=== PATIENT | female | born 1960 | race Two or more races ===

== ENCOUNTER 2019-12-08 18:48 | Observation (INO) | payer OTHER ==
[2019-12-08] MEDS ORDERED: SODIUM CHLORIDE 0.9% 500 ML 500 ML IV STA (20:11)
[2019-12-08] MEDS ORDERED: ASPIRIN 81 MG PO STA (20:11)
[2019-12-08] MEDS ORDERED: diphenhydrAMINE 50 MG/ML 1 ML VIAL IVP STA (20:12)
[2019-12-08] MEDS ORDERED: FAMOTIDINE 20 MG/2 ML VIAL IV STA (20:12)
[2019-12-08] MEDS ORDERED: methylPREDNISolone SOD SUCCI 125 MG/2 ML VIAL IV STA (20:12)
[2019-12-08 20:36] LABS: Basophils # (A) 0.1 k/uL (0-0.2); Basophils % (A) 1 %; Eosinophils # (A) 0.2 k/uL (0-0.7); Eosinophils % (A) 4 %; HCT 42.3 % (34.0-46.0); HGB 13.8 gm/dL (11.4-16.0); Lymphocytes # (A) 1.6 k/uL (1.0-4.8); Lymphocytes % (A) 24 %; MCH 29.5 pg (25.0-35.0); MCHC 32.7 g/dL (31.0-37.0); MCV 90.2 fL (80.0-100.0); Mean Platelet Volume 8.6; Monocytes # (A) 0.4 k/uL (0-1.0); Monocytes % (A) 5 %; Neutrophils # (A) 4.1 k/uL (1.3-7.7); Neutrophils % (A) 64 %; Platelet Count 221 k/uL (150-450); RBC 4.69 m/uL (3.80-5.40); RDW 12.5 % (11.5-15.5); WBC 6.5 k/uL (3.8-10.6)
[2019-12-08 20:51] LABS: ALT 49 U/L (4-34); AST 38 U/L (14-36); African American GFR (CKD) >90 (>60 ml/min/1.73 sqM); Albumin 4.2 g/dL (3.5-5.0); Alkaline Phosphatase 127 U/L (38-126); Anion Gap 5 mmol/L; Blood Urea Nitrogen 14 mg/dL (7-17); Calcium 10.1 mg/dL (8.4-10.2); Carbon Dioxide 27 mmol/L (22-30); Chloride 107 mmol/L (98-107); Glucose 94 mg/dL (74-99); Non-African American GFR(CKD) 80 (>60 ml/min/1.73 sqM); Sodium 139 mmol/L (137-145); Total Bilirubin 0.4 mg/dL (0.2-1.3); Total Protein 7.3 g/dL (6.3-8.2)
--- NOTE | 2019-12-08 20:56 | XR ---
EXAMINATION TYPE: XR chest 2V DATE OF EXAM: 12/08/2019 COMPARISON: NONE HISTORY: Chest pain TECHNIQUE: 2 views FINDINGS: Heart and mediastinum are normal. Lungs are clear. Diaphragm is normal. Bony thorax appears normal. IMPRESSION: Normal chest. Normal heart.
[2019-12-08] MEDS ORDERED: NITROGLYCERIN SL TABS 0.4 MG TAB SUBLINGUAL PRN (23:44)
--- NOTE | 2019-12-09 00:15 | ED ---
General Adult HPI - General Chief complaint: Skin/Abscess/Foreign Body Stated complaint: rash Time Seen by Provider: 12/08/19 19:28 Source: patient, RN notes reviewed, old records reviewed Mode of arrival: ambulatory Limitations: no limitations - History of Present Illness Initial comments: 59-year-old female patient presents to ED for evaluation of rash as well as chest pain. Patient was just recently moved here from [place] yesterday. Reports that she will go to a maculopapular rash in anterior chest wall, upper and lower extremities. Reports is pruritic in nature. Patient reports that this morning she began experiencing substernal chest pain and pressure. Also reports some associated shortness of breath with it. Denies any prior cardiac history. Reports that she is a former smoker. Denies any prior cardiac investigations. Systemic: Pt denies fatigue, fever/chills. Pt denies weakness, night sweats, weight loss. Neuro: Pt denies headache, visual disturbances, syncope or pre-syncope. HEENT: Pt denies ocular discharge or irritation, otalgia, rhinorrhea, pharyngitis or notable lymphadenopathy. Cardiopulmonary: Pt denies heart palpitations, dyspnea on exertion. Abdominal/GI: Pt denies abdominal pain, n/v/d. : Pt denies dysuria, burning w/ urination, frequency/urgency. Denies new onset urinary or bowel incontinence. MSK: Pt denies myalgia, loss of strength or function in extremities. Neuro: Pt denies new onset weakness, paresthesias. - Related Data Home Medications Medication Instructions Recorded Confirmed Aspirin EC [Ecotrin Low Dose] 81 mg PO DAILY 12/08/19 12/08/19 diphenhydrAMINE [Benadryl] 25 mg PO ONCE 12/08/19 12/08/19 Allergies Allergy/AdvReac Type Severity Reaction Status Date / Time No Known Allergies Allergy Verified 12/08/19 23:54 Review of Systems ROS Statement: Those systems with pertinent positive or pertinent negative responses have been documented in the HPI. ROS Other: All systems not noted in ROS Statement are negative. Past Medical History Additional Past Medical History / Comment(s): PARVO, degenerative disc disease, scoliosis, History of Any Multi-Drug Resistant Organisms: None Reported Past Surgical History: Appendectomy, Tonsillectomy Additional Past Surgical History / Comment(s): eye surgery, Past Psychological History: No Psychological Hx Reported Smoking Status: Former smoker Past Alcohol Use History: Rare Past Drug Use History: None Reported General Exam - General Exam Comments Initial Comments: Constitutional: NAD, AOX3, Pt has pleasant affect. HEENT: NC/AT, trachea midline, neck supple, no lymphadenopathy. Posterior pharynx non erythematous, without exudates. External ears appear normal, without discharge. Mucous membranes moist. Eyes PERRLA, EOM intact. There is no scleral icterus. No pallor noted. Cardiopulmonary: RRR, no murmurs, rubs or gallops, no JVD noted. Lungs CTAB in anterior and posterior carmona. No peripheral edema. Abdominal exam: Abdomen soft and non-distended. Abdomen non-tender to palpation in all 4 quadrants. Bowel sounds active in LLQ. No hepatosplenomegaly. No ecchymosis Neuro: CN II-XII grossly intact. No nuchal rigidity. No raccon eyes, no mccauley sign, no hemotympanum. No cervical spinal tenderness. MSK: No posterior calf tenderness bilaterally, homans sign negative bilaterally. Posterior tibialis and radial pulse +2 bilaterally. Sensation intact in upper and lower extremities. Full active ROM in upper and lower extremities, 5/5 stregnth. Derm: Maculopapular rash noted in anterior chest wall, upper and lower extremities. No angioedema or regional rehabilitation director pharygeal edema. Limitations: no limitations Course Vital Signs 12/08/19 12/08/19 12/08/19 19:01 22:13 23:49 Temperature 98.9 F 98.0 F Pulse Rate 83 69 68 Respiratory 18 18 18 Rate Blood Pressure 162/85 170/95 154/91 O2 Sat by Pulse 98 96 98 Oximetry Medical Decision Making - Medical Decision Making 59-year-old female patient presents to ED for evaluation of rash as well as chest pain. Patient was just recently moved here from [place] yesterday. Reports that she will go to a maculopapular rash in anterior chest wall, upper and lower extremities. Reports is pruritic in nature. Patient reports that this morning she began experiencing substernal chest pain and pressure. Also reports some associated shortness of breath with it. Denies any prior cardiac history. Reports that she is a former smoker. Denies any prior cardiac investigations. Patient vital signs are stable, afebrile. His exam displayed maculopapular rash in upper and lower extremities anterior torso. Patient admits or steroid Benadryl Pepcid. Rash did improve significantly. Patient reports that her chest pain has also resolved. Laboratory investigations were obtained d-dimer is 0.39. Troponin is negative. EKG nonspecific. Chest x-ray revealed no acute process. Patient be admitted for surgical troponins rule out ACS. Case discussed with Dr. Recio. - Lab Data Result diagrams: 12/08/19 20:20 12/08/19 20:20 Lab Results 12/08/19 12/08/19 12/08/19 Range/Units 20:20 20:20 20:20 WBC 6.5 (3.8-10.6) k/uL RBC 4.69 (3.80-5.40) m/uL Hgb 13.8 (11.4-16.0) gm/dL Hct 42.3 (34.0-46.0) % MCV 90.2 (80.0-100.0) fL MCH 29.5 (25.0-35.0) pg MCHC 32.7 (31.0-37.0) g/dL RDW 12.5 (11.5-15.5) % Plt Count 221 (150-450) k/uL Neutrophils % 64 % Lymphocytes % 24 % Monocytes % 5 % Eosinophils % 4 % Basophils % 1 % Neutrophils # 4.1 (1.3-7.7) k/uL Lymphocytes # 1.6 (1.0-4.8) k/uL Monocytes # 0.4 (0-1.0) k/uL Eosinophils # 0.2 (0-0.7) k/uL Basophils # 0.1 (0-0.2) k/uL D-Dimer (<0.60) mg/L FEU Sodium 139 (137-145) mmol/L Potassium 4.0 (3.5-5.1) mmol/L Chloride 107 (98-107) mmol/L Carbon Dioxide 27 (22-30) mmol/L Anion Gap 5 mmol/L BUN 14 (7-17) mg/dL Creatinine 0.82 (0.52-1.04) mg/dL Est GFR (CKD-EPI)AfAm >90 (>60 ml/min/1.73 sqM) Est GFR (CKD-EPI)NonAf 80 (>60 ml/min/1.73 sqM) Glucose 94 (74-99) mg/dL Calcium 10.1 (8.4-10.2) mg/dL Magnesium 2.0 (1.6-2.3) mg/dL Total Bilirubin 0.4 (0.2-1.3) mg/dL AST 38 H (14-36) U/L ALT 49 H (4-34) U/L Alkaline Phosphatase 127 H (38-126) U/L Troponin I <0.012 (0.000-0.034) ng/mL Total Protein 7.3 (6.3-8.2) g/dL Albumin 4.2 (3.5-5.0) g/dL 12/08/19 Range/Units 20:20 WBC (3.8-10.6) k/uL RBC (3.80-5.40) m/uL Hgb (11.4-16.0) gm/dL Hct (34.0-46.0) % MCV (80.0-100.0) fL MCH (25.0-35.0) pg MCHC (31.0-37.0) g/dL RDW (11.5-15.5) % Plt Count (150-450) k/uL Neutrophils % % Lymphocytes % % Monocytes % % Eosinophils % % Basophils % % Neutrophils # (1.3-7.7) k/uL Lymphocytes # (1.0-4.8) k/uL Monocytes # (0-1.0) k/uL Eosinophils # (0-0.7) k/uL Basophils # (0-0.2) k/uL D-Dimer 0.39 (<0.60) mg/L FEU Sodium (137-145) mmol/L Potassium (3.5-5.1) mmol/L Chloride (98-107) mmol/L Carbon Dioxide (22-30) mmol/L Anion Gap mmol/L BUN (7-17) mg/dL Creatinine (0.52-1.04) mg/dL Est GFR (CKD-EPI)AfAm (>60 ml/min/1.73 sqM) Est GFR (CKD-EPI)NonAf (>60 ml/min/1.73 sqM) Glucose (74-99) mg/dL Calcium (8.4-10.2) mg/dL Magnesium (1.6-2.3) mg/dL Total Bilirubin (0.2-1.3) mg/dL AST (14-36) U/L ALT (4-34) U/L Alkaline Phosphatase (38-126) U/L Troponin I (0.000-0.034) ng/mL Total Protein (6.3-8.2) g/dL Albumin (3.5-5.0) g/dL - EKG Data -: EKG Interpreted by Me (and Dr. Recio ) EKG Comments: Ventricular rate 65, AK interval 214, QRS 80, QT/QTC venous access 411. Sensory rhythm first-degree AV block. Low voltage QRS. Rule out anterior infarct age indeterminate. Abnormal EKG. No ST elevations or depressions. Disposition Clinical Impression: Chest pain, Rash Disposition: ADMITTED IP TO THIS [facility] Condition: Serious Is patient prescribed a controlled substance at d/c from ED?: No Referrals: None,Stated [Primary Care Provider] - 1-2 days
[2019-12-09 02:24] VITALS: RESP 16
[2019-12-09 03:17] LABS: Cholesterol 208 mg/dL (<200); HDL Cholesterol 35 mg/dL (40-60); LDL Cholesterol,Calculated 100 mg/dL (0-99); Triglycerides 367 mg/dL (<150)
[2019-12-09] MEDS ORDERED: diphenhydrAMINE 25 MG CAP PO STA (08:01)
[2019-12-09] MEDS ORDERED: ASPIRIN 325 MG TAB PO SCH (09:00)
--- NOTE | 2019-12-09 09:39 | P.CRDCN ---
History of Present Illness History of present illness: HISTORY OF PRESENTING ILLNESS This is a pleasant 59-year-old female past medical history significant for fatty liver disease and chronic back pain. She denies prior history of coronary artery disease and does not follow in the office with a combat information center officer for any reason. We have been asked to see in consultation for chest pain. She presents to the emergency department yesterday with symptoms of a rash all over her body that has been going on for the previous 2 days. She recently moved to [place] from [place] and is living with her uncle. She states her uncle does not have a rash. Rash is quite pruritic in nature and appears maculopapular. Associated with the rash starting around the same time she describes a tight squeezing sensation in the midsternal region associated with shortness of breath, nausea, dizziness, palpitations, cough and headache. Her symptoms are not exacerbated by exertion or activity. They have been constant for the past 2 days. According to the patient she has never undergone any sort of stress testing in the past. DIAGNOSTICS EKG reveals sinus mechanism, first-degree AV block and poor R-wave progression. Chest xray negative for an acute cardiopulmonary process. Laboratory reviewed, CBC unremarkable, d-dimer 0.39, sodium 139, potassium 4.0, creatinine 0.82, magnesium 2.0, AST 38, ALT 49, alkaline phosphate 127, cardiac enzymes negative 2, LDL 100, HDL 35, triglycerides 367 and a total cholesterol 208. Current cardiac medications include aspirin 81 mg daily. REVIEW OF SYSTEMS At the time of my exam: CONSTITUTIONAL: Denies fever or chills. CARDIOVASCULAR: Complains of chest tightness, shortness of breath and palpitations. Denies orthopnea or PND. RESPIRATORY: Complains of cough. GASTROINTESTINAL: Complains of nausea. Denies abdominal pain, diarrhea, constipation or vomiting. MUSCULOSKELETAL: Denies myalgias. NEUROLOGIC: Complains of headache. Denies numbness, tingling or weakness. ENDOCRINE: Denies fatigue, weight change, polydipsia or polyurina. GENITOURINARY: Denies burning, hematuria or urgency with micturation. HEMATOLOGIC: Denies history of anemia or bleeding. PHYSICAL EXAMINATION Blood pressure 133/74 heart rate 70 afebrile and maintaining oxygen saturation on room air. CONSTITUTIONAL: No apparent distress. HEENT: Head is normocephalic. Pupils are equal, round. Sclerae anicteric. Mucous membranes of the mouth are moist. No JVD. No carotid bruit. CHEST EXAMINATION: Lungs are clear to auscultation. No chest wall tenderness is noted on palpation or with deep breathing. HEART EXAMINATION: Regular rate and rhythm. S1, S2 heard. No murmurs, gallops or rub. ABDOMEN: Soft, nontender. Positive bowel sounds. EXTREMITIES: 2+ peripheral pulses, no lower extremity edema and no calf tenderness. NEUROLOGIC EXAMINATION: Patient is awake, alert and oriented x3. ASSESSMENT Chest pain, atypical. An acute coronary event has been ruled out. Acute maculopapular rash throughout her entire body Dyslipidemia PLAN An acute coronary event has been ruled out. Obtain 2-D echocardiogram and Doppler study to assess cardiac structure and function. Give one dose of PO benadryl 25 mg for ongoing rash and pruritus. Symptoms are atypical, no acute EKG changes and negative cardiac enzymes. Recommend evaluation and treatment of rash and will pursue outpatient stress testing in the office. Lifestyle modifications recommended for lowering of LDL cholesterol and triglycerides. Thank you kindly for this consultation. Nurse Practitioner note has been reviewed, I agree with a documented findings and plan of care. Patient was seen and examined. Past Medical History Past Medical History: Liver Disease Additional Past Medical History / Comment(s): PARVO, degenerative disc disease, scoliosis, fatty liver History of Any Multi-Drug Resistant Organisms: None Reported Past Surgical History: Appendectomy, Tonsillectomy Additional Past Surgical History / Comment(s): eye surgery, Past Psychological History: No Psychological Hx Reported Smoking Status: Former smoker Past Alcohol Use History: Rare Past Drug Use History: None Reported Medications and Allergies Home Medications Medication Instructions Recorded Confirmed Type Aspirin EC [Ecotrin Low Dose] 81 mg PO DAILY 12/08/19 12/08/19 History diphenhydrAMINE [Benadryl] 25 mg PO ONCE 12/08/19 12/08/19 History Allergies Allergy/AdvReac Type Severity Reaction Status Date / Time No Known Allergies Allergy Verified 12/08/19 23:54 Physical Exam Vitals: Vital Signs Temp Pulse Pulse Resp BP BP Pulse Ox 12/09/19 07:30 98.2 F 70 16 133/74 95 12/09/19 01:46 98 F 95 16 151/79 95 12/08/19 23:49 98.0 F 68 18 154/91 98 12/08/19 22:13 69 18 170/95 96 12/08/19 19:01 98.9 F 83 18 162/85 98 Intake and Output 12/08/19 12/09/19 12/09/19 22:59 06:59 14:59 Other: # Voids 1 Weight 85.729 kg 85.729 kg Results 12/08/19 20:20 12/08/19 20:20 Cardiac Enzymes 12/08/19 12/08/19 12/09/19 Range/Units 20:20 20:20 01:57 AST 38 H (14-36) U/L Troponin I <0.012 <0.012 (0.000-0.034) ng/mL Lipids 12/09/19 Range/Units 02:00 Triglycerides 367 H (<150) mg/dL Cholesterol 208 H (<200) mg/dL HDL Cholesterol 35 L (40-60) mg/dL CBC 12/08/19 Range/Units 20:20 WBC 6.5 (3.8-10.6) k/uL RBC 4.69 (3.80-5.40) m/uL Hgb 13.8 (11.4-16.0) gm/dL Hct 42.3 (34.0-46.0) % Plt Count 221 (150-450) k/uL Comprehensive Metabolic Panel 12/08/19 Range/Units 20:20 Sodium 139 (137-145) mmol/L Potassium 4.0 (3.5-5.1) mmol/L Chloride 107 (98-107) mmol/L Carbon Dioxide 27 (22-30) mmol/L BUN 14 (7-17) mg/dL Creatinine 0.82 (0.52-1.04) mg/dL Glucose 94 (74-99) mg/dL Calcium 10.1 (8.4-10.2) mg/dL AST 38 H (14-36) U/L ALT 49 H (4-34) U/L Alkaline Phosphatase 127 H (38-126) U/L Total Protein 7.3 (6.3-8.2) g/dL Albumin 4.2 (3.5-5.0) g/dL Current Medications Generic Name Dose Route Start Last Admin Trade Name Freq PRN Reason Stop Dose Admin Aspirin 325 mg 12/09/19 09:00 12/09/19 07:35 Aspirin PO 325 mg DAILY ODALYS Administration Nitroglycerin 0.4 mg 12/08/19 23:44 Nitrostat SUBLINGUAL Q5M PRN Chest Pain Intake and Output 12/08/19 12/09/19 12/09/19 22:59 06:59 14:59 Other: # Voids 1 Weight 85.729 kg 85.729 kg 12/08/19 20:20 12/08/19 20:20
--- NOTE | 2019-12-09 11:59 | ECHOF ---
Referral Reason:shorntess of breath MEASUREMENTS -------- HEIGHT: 154.9 cm WEIGHT: 85.7 kg BP: RVIDd: 3.0 cm (< 3.3) IVSd: 1.3 cm (0.6 - 1.1) LVIDd: 2.9 cm (3.9 - 5.3) LVPWd: 1.2 cm (0.6 - 1.1) IVSs: 1.7 cm LVIDs: 1.2 cm LVPWs: 1.8 cm LAESV Index (A-L): 28.76 ml/m Ao Diam: 2.7 cm (2.0 - 3.7) AV Cusp: 1.6 cm (1.5 - 2.6) LA Diam: 2.7 cm (2.7 - 3.8) MV EXCURSION: 13.666 mm (> 18.000) MV EF SLOPE: 26 mm/s (70 - 150) EPSS: 0.4 cm MV E Tato: 0.83 m/s MV DecT: 212 ms MV A Tato: 1.08 m/s MV E/A Ratio: 0.77 RAP: 5.00 mmHg RVSP: 36.78 mmHg FINDINGS -------- Sinus rhythm. This was a technically good study. The left ventricular size is normal. There is mild concentric left ventricular hypertrophy. Overa ll left ventricular systolic function is normal with, an EF between 60 - 65 %. The right ventricle is normal in size. The left atrial size is normal. Normal LA size by volume 22+/-6 ml/m2. The right atrial size is normal. Interatrial and interventricular septum intact. The aortic valve is trileaflet and appears structurally normal. The mitral valve is normal. Mild mitral regurgitation is present. The tricuspid valve appears structurally normal. Mild tricuspid regurgitation present. Right vent ricular systolic pressure is normal at < 35 mmHg. There is no pulmonic regurgitation present. The aortic root size is normal. Normal inferior vena cava with normal inspiratory collapse consistent with estimated right atrial pre ssure of 5 mmHg. There is no pericardial effusion. CONCLUSIONS -------- 1. Sinus rhythm. 2. This was a technically good study. 3. The left ventricular size is normal. 4. There is mild concentric left ventricular hypertrophy. 5. Overall left ventricular systolic function is normal with, an EF between 60 - 65 %. 6. The right ventricle is normal in size. 7. The left atrial size is normal. 8. Normal LA size by volume 22+/-6 ml/m2. 9. The right atrial size is normal. 10. Interatrial and interventricular septum intact. 11. The aortic valve is trileaflet and appears structurally normal. 12. The mitral valve is normal. 13. Mild mitral regurgitation is present. 14. The tricuspid valve appears structurally normal. 15. Mild tricuspid regurgitation present. 16. Right ventricular systolic pressure is normal at < 35 mmHg. 17. There is no pulmonic regurgitation present. 18. The aortic root size is normal. 19. Normal inferior vena cava with normal inspiratory collapse consistent with estimated right atrial pressure of 5 mmHg. 20. There is no pericardial effusion. FACILITIES MECHANICAL DESIGN ENGINEER: Traci Wren RDCS
[2019-12-09 12:08] VITALS: BP 141/82; PULSE 99; TEMP 98
--- NOTE | 2019-12-09 13:02 | P.HPIM ---
History of Present Illness H&P Date: 12/09/19 Chief Complaint: Chest pain, rash This note will serve as the H&P and discharge summary. This is a 59-year-old female with PMH of chronic neck pain presents to the ED for chest tightness. Patient reports that she traveled from [place] 1 week ago and has been living with her uncle since. Patient reports a rash that initially started on her bilateral upper extremities but has spread throughout her body mostly involving her arms, lower extremities below the knees and her waist. She denies any rash in her palms or soles. She denies any pets at home. She does report spending time outdoors while in [place]. Patient reports itchiness with her rash. She does report a history of Parvo B19 infection in the past. Patient states she experienced chest tightness yesterday while she was sitting down. When her chest tightness did not improve this prompted her to come to the ED. She denies any pleuritic chest pain. She denies any shortness of breath or palpitations. She denies any headache, lower extremity edema, nausea or vomiting, fever chills, cough, changes in urination or bowel habits. No changes in appetite or weight. She denies any dizziness, numbness/weakness/tingling of the extremities. In the ED, her vital signs were stable except for mildly elevated BP of 162/85. CBC was unremarkable. D-dimer was negative. CMP showed AST of 38, ALT of 49 and alkaline phosphatase of 127. Troponin was less than 0.0123, EKG showing sinus rhythm with first-degree AV block. Acute coronary syndrome was ruled out. BNP was 119. Lipid panel showed triglyceride of 367, total cholesterol 208, LDL of 100 and HDL 35. Patient was admitted for chest pain, rule out acute coronary syndrome and cardiology consultation. Cardiology evaluated the patient and recommended echocardiogram. Echocardiogram showed EF 60-65% with mild concentric LVH. Cardiology cleared the patient for discharge. Patient was seen and examined. No acute events overnight. Patient reports improvement in her chest tightness since admission. She denies any actual chest pain, shortness of breath or palpitations. She continues to complain of the pruritic nature of her rash. Review of Systems Pertinent positives and negatives as discussed in HPI, a complete review of systems was performed and all other systems are negative. Past Medical History Past Medical History: Liver Disease Additional Past Medical History / Comment(s): PARVO, degenerative disc disease, scoliosis, fatty liver History of Any Multi-Drug Resistant Organisms: None Reported Past Surgical History: Appendectomy, Tonsillectomy Additional Past Surgical History / Comment(s): eye surgery, Past Psychological History: No Psychological Hx Reported Smoking Status: Former smoker Past Alcohol Use History: Rare Past Drug Use History: None Reported Medications and Allergies Home Medications Medication Instructions Recorded Confirmed Type Aspirin EC [Ecotrin Low Dose] 81 mg PO DAILY 12/08/19 12/08/19 History diphenhydrAMINE [Benadryl] 25 mg PO ONCE 12/08/19 12/08/19 History Allergies Allergy/AdvReac Type Severity Reaction Status Date / Time No Known Allergies Allergy Verified 12/08/19 23:54 Physical Exam Vitals: Vital Signs Temp Pulse Pulse Resp BP BP Pulse Ox 12/09/19 12:00 98.0 F 99 16 141/82 100 12/09/19 07:30 98.2 F 70 16 133/74 95 12/09/19 01:46 98 F 95 16 151/79 95 12/08/19 23:49 98.0 F 68 18 154/91 98 12/08/19 22:13 69 18 170/95 96 12/08/19 19:01 98.9 F 83 18 162/85 98 Intake and Output 12/08/19 12/09/19 12/09/19 22:59 06:59 14:59 Intake Total 1180 Balance 1180 Intake: Oral 1180 Other: Voiding Method Toilet # Voids 1 2 Weight 85.729 kg 85.729 kg General: [non toxic], [no distress], [appears at stated age] Derm: [warm], [dry], [maculopapular rash scattered throughout her body, focused on the bilateral lower extremities below the knee and bilateral upper extremities and above the waist] Head: [atraumatic], [normocephalic], [symmetric] Eyes: [EOMI], [no lid lag], [anicteric sclera] Mouth: [no lip lesion], [mucus membranes moist] Cardiovascular: [S1S2 reg], [no murmur], [positive posterior tibial pulse bilateral], Lungs: [CTA bilateral], [no rhonchi, no rales] , [no accessory muscle use] Abdominal: [soft], [ nontender to palpation], [no guarding], [no appreciable organomegaly] Ext: [no gross muscle atrophy], [no edema], [no contractures] Neuro: [ CN II-XI grossly intact], [no focal neuro deficits] Psych: [Alert], [oriented], [appropriate affect] Results CBC & Chem 7: 12/08/19 20:20 12/08/19 20:20 Labs: Abnormal Lab Results - Last 24 Hours (Table) 12/08/19 12/09/19 Range/Units 20:20 02:00 AST 38 H (14-36) U/L ALT 49 H (4-34) U/L Alkaline Phosphatase 127 H (38-126) U/L Triglycerides 367 H (<150) mg/dL Cholesterol 208 H (<200) mg/dL LDL Cholesterol, Calc 100 H (0-99) mg/dL HDL Cholesterol 35 L (40-60) mg/dL Thrombosis Risk Factor Assmnt - Choose All That Apply Any of the Below Risk Factors Present?: Yes Each Factor Represents 1 point: Age 41-60 years Other Risk Factors: No Thrombosis Risk Factor Assessment Total Risk Factor Score: 1 Thrombosis Risk Factor Assessment Level: Low Risk Assessment and Plan Assessment: Rash likely related to fleas Chest tightness Dyslipidemia Transaminitis Her rash appears to be related to fleas or mites as per physical exam. Less likely scabies. Her rash spares the palms and soles. Itching has improved with Solu-Medrol and diphenhydramine. Patient will be advised conservative management at this time. Will discharge patient home with 4 more days of prednisone by mouth. She can use hydrocortisone as needed for itching. Acute coronary syndrome has been ruled out with regard to her chest tightness and she is hemodynamically stable. Echocardiogram is within normal limits. She does have hyperlipidemia for which Lipitor will be started. Aspirin will be started for ASCVD risk. Her transaminitis is likely related to fatty liver. She has been advised dietary modifications. Plans on DC home to follow-up with PCP within 3 days and cardiology for possible stress test in the outpatient setting.
[2019-12-09] MEDS ORDERED: ATORVASTATIN 40 MG TAB PO SCH (21:00)
[2019-12-10] MEDS ORDERED: ASPIRIN 81 MG PO SCH (09:00)
== END 2019-12-09 14:30 | disposition home or self-care (01) ==
LOC: EC 18:48 → 1SOBS 12-09 01:01
PROVIDERS: ADMIT Internal Medicine; ATTEND Internal Medicine
DX: R07.89 Other chest pain (principal); L29.9 Pruritus, unspecified; R06.02 Shortness of breath; R11.0 Nausea; R42 Dizziness and giddiness; R00.2 Palpitations; R05 Cough; R51 Headache; G89.29 Other chronic pain; M54.2 Cervicalgia; M54.9 Dorsalgia, unspecified; Z79.82 Long term (current) use of aspirin; K76.0 Fatty (change of) liver, not elsewhere classified; E78.5 Hyperlipidemia, unspecified; Z79.899 Other long term (current) drug therapy; Z87.891 Personal history of nicotine dependence; Z86.19 Personal history of other infectious and parasitic diseases; R03.0 Elevated blood-pressure reading, without diagnosis of hypertension; Z20.828 Contact with and (suspected) exposure to other viral communicable diseases
CPT/HCPCS: 96361; 96374; 96375; 99285; 36415; 93005 ×2; 93306; 85379; 83880; 80061; 80053; 83735; 84484 ×2; 85025; 71046; G0378; U0003; J1200; J2930